=== PATIENT | female | born 1965 | race Caucasian/White ===

== ENCOUNTER → 2017-06-08 | Outpatient (CLI) | payer OTHER ==
[~2017-06-08] MED LIST: ITCHY EYE5 ML OP; NEXIUM5 MG
== END | disposition home or self-care (01) ==
LOC: PPHC 11:08
DX: S90.02XA Contusion of left ankle, initial encounter (principal); W18.39XA Other fall on same level, initial encounter; Y93.89 Activity, other specified; Y92.098 Other place in other non-institutional residence as the place of occurrence of the external cause; Y99.8 Other external cause status

== ENCOUNTER → 2017-06-08 | Outpatient (CLI) | payer OTHER | END | disposition home or self-care (01) | LOC: RAD 12:20 | DX: S80.01XA Contusion of right knee, initial encounter (principal); S90.02XA Contusion of left ankle, initial encounter; S59.911A Unspecified injury of right forearm, initial encounter ==

== ENCOUNTER → 2018-09-25 | Outpatient (CLI) | payer OTHER | END | disposition home or self-care (01) | LOC: RAD 11:07 | DX: M25.562 Pain in left knee (principal); M25.572 Pain in left ankle and joints of left foot ==

== ENCOUNTER 2024-11-13 19:15 | Emergency (ER) | payer OTHER ==
[~2024-11-13] VITALS: Ht 160 cm; Wt 70.3 kg
[2024-11-13] MEDS ORDERED: ROSUVASTATIN CA10 MG PO (19:55)
[2024-11-13] MEDS ORDERED: CEPHALEXIN500 MG PO (21:15)
[2024-11-13] MEDS ORDERED: CEFTRIAXONE SODIUM 1,000 MG VIAL IM ONE (21:15)
[2024-11-13] MEDS ORDERED: ACETAMINOPHEN500 M1 PO (21:15)
[2024-11-13] MEDS ORDERED: CEFTRIAXONE SODIUM 1,000 MG VIAL ONE (21:16)
== END 2024-11-13 21:25 | disposition home or self-care (01) ==
LOC: ER 19:15
DX: S61.211A Laceration without foreign body of left index finger without damage to nail, initial encounter (principal); W26.0XXA Contact with knife, initial encounter; Y93.89 Activity, other specified; Y92.89 Other specified places as the place of occurrence of the external cause; Y99.9 Unspecified external cause status; Z91.048 Other nonmedicinal substance allergy status

== ENCOUNTER 2024-11-23 08:26 | Emergency (ER) | payer OTHER ==
[~2024-11-23] VITALS: Ht 160 cm; Wt 70.3 kg
[~2024-11-23 08:26] MED LIST changes: +ACETAMINOPHEN500 M1 PO; +CEPHALEXIN500 MG PO; +ROSUVASTATIN CA10 MG PO
[2024-11-23 08:55] VITALS: BP 90/55
[2024-11-23 09:48] VITALS: O2SAT 100
== END 2024-11-23 09:49 | disposition home or self-care (01) ==
LOC: ER 08:26
DX: Z48.02 Encounter for removal of sutures (principal); Z91.048 Other nonmedicinal substance allergy status